=== PATIENT | female | born 1990 | race African-American/Black ===

== ENCOUNTER 2022-06-05 09:25 | Emergency (ER) | payer SELFPAY ==
[~2022-06-05] VITALS: Ht 167.7 cm; Wt 108.9 kg
[2022-06-05] MEDS ORDERED: IBUPROFEN 600 MG (MOTRIN) TAB PO ONE (11:15)
--- NOTE | 2022-06-05 11:35 | ED General ---
General Chief Complaint: COVID19 Suspect/Confirmed Stated Complaint: BODYACHES/SORE THROAT/HEADACHE Nursing Triage Note: PT AMBULATE TO ROOM WITHOUT DIFFICULTY WITH C/O BODY ACHES, HEADACHE, AND SORE THROAT. PT REPORTS TAKING TYLENOL LAST NIGHT AT 1999 FOR PAIN. (LÓPEZ HAYWARD APRN) History of Present Illness Date Seen by Provider: Jun 05, 2022 Time Seen by Provider: 11:05 Initial Comments Patient is a 23-year-old female who presents to the emergency department for ev aluation of body aches, sore throat, and headaches that began yesterday. Patient took a dose of Tylenol yesterday for the pain but has taken nothing today. Patient denies any known sick contacts. No known fevers. No nausea/vomiting/diarrhea. (LÓPEZ HAYWARD APRN) Allergies and Home Medications Allergies Coded Allergies: No Known Allergies (Verified Allergy, Unknown, 06/05/22) Patient Home Medication List Home Medication List Reviewed: Yes (LÓPEZ HAYWARD APRN) Ibuprofen (Ibuprofen) 600 Mg Tablet, 600 MG PO Q6H PRN for PAIN-MILD Prescribed by: López Hayward on 06/05/22 1137 Review of Systems Review of Systems Constitutional: see HPI, weakness EENTM: see HPI, throat pain Respiratory: no symptoms reported Cardiovascular: no symptoms reported Gastrointestinal: no symptoms reported Genitourinary: no symptoms reported Musculoskeletal: see HPI, muscle pain Skin: no symptoms reported Psychiatric/Neurological: No Symptoms Reported (LÓPEZ HAYWARD APRN) Past Elxuagq-Yjvsmn-Eamuei Hx Patient Social History Tobacco Use?: No Smoking Status: Never a Smoker Smokeless Tobacco Frequency: Never a User Use of E-Cig and/or Vaping dev: No Use of E-Cig and/or Vaping Kana: Never a User Substance use?: No Alcohol Use?: Yes Alcohol Frequency: Once in a while Pt feels they are or have been: No (LÓPEZ HAYWARD APRN) Physical Exam Vital Signs Vital Signs - First Documented 06/05/22 06/05/22 09:36 11:40 Temp 37.4 Pulse 86 Resp 15 B/P (MAP) 157/114 (128) Pulse Ox 98 O2 Delivery Room Air (YIMI LEDESMA MD) Vital Signs Capillary Refill : Less Than 3 Seconds (LÓPEZ HAYWARD APRN) Height, Weight, BMI Height: '" Weight: lbs. oz. kg; 38.00 BMI Method: General Appearance: No Apparent Distress, WD/WN HEENT: PERRL/EOMI, TMs Normal, Normal ENT Inspection, Pharynx Normal Neck: Full Range of Motion, Normal Inspection, Non Tender, Supple Respiratory: Chest Non Tender, Lungs Clear, Normal Breath Sounds, No Accessory Muscle Use, No Respiratory Distress Cardiovascular: Regular Rate, Rhythm Neurologic/Psychiatric: Alert, Oriented x3, No Motor/Sensory Deficits, Normal Mood/Affect Skin: Normal Color, Warm/Dry (LÓPEZ HAYWARD APRN) Progress/Results/Core Measures Suspected Sepsis SIRS Temperature: Pulse: 86 Respiratory Rate: 15 Blood Pressure 157 /114 Mean: 128 (LÓPEZ HAYWARD APRN) Results/Orders Lab Results Laboratory Tests Test 06/05/22 09:54 Range/Units Influenza Type A (RT-PCR) Not Detected Not Detecte Influenza Type B (RT-PCR) Not Detected Not Detecte SARS-CoV-2 RNA (RT-PCR) Not Detected Not Detecte (YIMI LEDESMA MD) My Orders Orders - YIMI LEDESMA MD Covid 19 Inhouse Test (06/05/22 09:52) Influenza A And B By Pcr (06/05/22 09:52) Isolation Central Supply Req (06/05/22 09:52) (YIMI LEDESMA MD) Medications Given in ED Current Medications Medications Dose Ordered Sig/Manuel Route Start Time Stop Time Status Last Admin Dose Admin Ibuprofen 600 mg ONCE ONCE PO 06/05/22 11:15 06/05/22 11:16 DC 06/05/22 11:19 600 MG (YIMI LEDESMA MD) Vital Signs/I&O 06/05/22 06/05/22 06/05/22 09:36 09:36 11:40 Temp 37.4 37.2 Pulse 86 88 Resp 15 18 B/P (MAP) 157/114 (128) 148/102 Pulse Ox 98 O2 Delivery Room Air Room Air Room Air (YIMI LEDESMA MD) Vital Signs/I&O Capillary Refill : Less Than 3 Seconds (LÓPEZ HAYWARD APRN) Blood Pressure Mean: 128 Progress Note : Progress Note Patient is nontoxic and well-hydrated on exam. No adventitious lung sounds or increased work of breathing noted. No nuchal rigidity appreciated. Vital signs reassuring. COVID and flu tests are negative. Viral etiology of symptoms likely. No obvious nidus of bacterial infection noted on exam. (LPÓEZ HAYWARD APRN) Departure Impression Primary Impression: Acute viral syndrome Disposition: 01 HOME, SELF-CARE Condition: Stable Departure-Patient Inst. Decision time for Depature: 11:35 (LÓPEZ HAYWARD APRN) Referrals: NO,LOCAL PHYSICIAN (PCP/Family) Primary Care Physician Patient Instructions: Viral Syndrome (DC) Scripts Ibuprofen (Ibuprofen) 600 Mg Tablet 600 MG PO Q6H PRN for PAIN-MILD, #20 TAB 0 Refills Prov: LÓPEZ HAYWARD APRN 06/05/22 ATTENDING PHYSICIAN NOTE: I was physically present as attending physician in the emergency department d uring the care of this patient, but I was not directly involved in the decision making or delivery of care for this patient. (YIMI ELDESMA MD) LÓPEZ HAYWARD APRN Jun 05, 2022 11:35 YIMI LEDESMA MD Jun 05, 2022 20:34
[2022-06-05] MEDS ORDERED: IBUP-1773 PO (11:37)
[2022-06-05 11:40] VITALS: BP 148/102
== END 2022-06-05 11:40 | disposition home or self-care (01) ==
LOC: ER 09:28
DX: B34.9 Viral infection, unspecified (principal); R51.9 Headache, unspecified; M79.10 Myalgia, unspecified site; Z28.310 Unvaccinated for COVID-19; Z20.822 Contact with and (suspected) exposure to COVID-19
CPT/HCPCS: 87636; 99283